=== PATIENT | female | born 1950 | race Caucasian/White ===

== ENCOUNTER 2023-06-03 11:16 | Inpatient (IN) | payer OTHER, MEDICARE ==
[~2023-06-03] VITALS: Ht 157.5 cm; Wt 84.9 kg
[2023-06-03 11:51] LABS: BASOPHILS # (AUTO) 0.1 K/uL (0.0-0.2); BASOPHILS % (AUTO) 0.8 % (0.0-2.0); EOSINOPHILS # (AUTO) 0.1 K/uL (0.0-0.7); EOSINOPHILS % (AUTO) 0.9 % (0.0-6.0); HEMATOCRIT 34 % (33-45); HEMOGLOBIN 11.2 g/dL (11.5-14.8); LYMPHOCYTES # (AUTO) 2.3 K/uL (0.8-4.8); LYMPHOCYTES % (AUTO) 26.6 % (20.0-44.0); MEAN CORPUSCULAR HEMOGLOBIN 30 PG (26.0-33.0); MEAN CORPUSCULAR HGB CONC 33 g/dl (31.0-36.0); MEAN CORPUSCULAR VOLUME 91 fL (82-100); MONOCYTES # (AUTO) 0.5 K/uL (0.1-1.30); MONOCYTES % (AUTO) 5.8 % (2.0-12.0); NEUTROPHILS # (AUTO) 5.6 K/uL (1.8-8.9); NEUTROPHILS % (AUTO) 65.9 % (43.0-81.0); PLATELET COUNT (AUTO) 406 K/uL (150-450); RED BLOOD CELL COUNT(AUTO) 3.73 MIL/uL (4.0-5.2); RED CELL DISTRIBUTION WIDTH 13.8 % (11.5-15.0); WHITE BLOOD COUNT (AUTO) 8.5 K/uL (4.3-11.0)
[2023-06-03 12:02] LABS: CARBON DIOXIDE 23 mmol/L (21-32); CHLORIDE 104 mmol/L (98-107); CREATININE 1.4 mg/dL (0.6-1.3); GLUCOSE 212 mg/dL (74-106); POTASSIUM 4.1 mmol/L (3.5-5.1); SODIUM SERUM 136 mmol/L (136-145); UREA NITROGEN, BLOOD 30 mg/dL (7-18)
[2023-06-03 12:04] LABS: INR 1.48 (0.91-1.10); PARTIAL THROMBOPLASTIN TIME 38.1 SEC (24.3-34.3); PROTHROMBIN TIME 14.9 SECS (9.2-11.1)
[2023-06-03 12:07] LABS: ALANINE AMINOTRANSFERASE 15 U/L (12-78); ALBUMIN 3.2 g/dL (3.4-5.0); ALKALINE PHOSPHATASE 43 U/L (46-116); ASPARTATE AMINOTRANSFERASE 17 U/L (15-37); BILIRUBIN,DIRECT 0.1 mg/dL (0.0-0.2); BILIRUBIN,TOTAL 0.3 mg/dL (0.2-1.0); TOTAL PROTEIN, SERUM 8.2 g/dL (6.4-8.2)
[2023-06-03] MEDS: IV NS 0.9% 1,000 ML BAG IV ONE (12:40)
[2023-06-03] MEDS ORDERED: DRON400T6 PO (13:41)
[2023-06-03] MEDS ORDERED: METF-440 PO (13:41)
[2023-06-03] MEDS ORDERED: DILT-4 PO (13:41)
[2023-06-03] MEDS ORDERED: GABA-536 PO (13:41)
[2023-06-03] MEDS ORDERED: ATOR20TA PO (13:41)
[2023-06-03] MEDS ORDERED: ENAL-78 PO (13:41)
[2023-06-03] MEDS ORDERED: DABI150C PO (13:41)
[2023-06-03] MEDS ORDERED: DONE10TA44 PO (13:41)
[2023-06-03] MEDS ORDERED: MEMA10TA PO (13:41)
[2023-06-03] MEDS ORDERED: CALC500T52 (13:41)
[2023-06-03] MEDS ORDERED: CHOL200059 PO (13:41)
[2023-06-03] MEDS ORDERED: LEVO50TA8 PO (13:41)
[2023-06-03] MEDS ORDERED: QUET25TA PO (13:41)
[2023-06-03 13:48] LABS: INR 1.42 (0.91-1.10); PROTHROMBIN TIME 14.4 SECS (9.2-11.1)
[2023-06-03] MEDS ORDERED: Z GUARD REMEDY 4 OZ OINT TP PRN (15:00)
[2023-06-03] MEDS ORDERED: ONDANSETRON HCL/PF 4 MG/2 ML VIAL IVP PRN (15:00)
[2023-06-03] MEDS ORDERED: MAGNESIUM HYDROXIDE 30 ML UDC PO PRN (15:00)
[2023-06-03] MEDS ORDERED: ACETAMINOPHEN 325 MG TABLET PO PRN (15:00)
[2023-06-03] MEDS ORDERED: DABIGATRAN ETEXILATE MESYLATE 150 MG CAPSULE PO SCH (17:00)
[2023-06-03 18:25] VITALS: BP_SYST 120; BP_SYST 125; BP_SYST 128; BP_DIAS 85; BP_DIAS 86; BP_DIAS 87; TEMP 98.8; O2SAT 98
[2023-06-03] MEDS: IV NS 0.9% 1,000 ML IV PRN (18:30)
[2023-06-03] MEDS: DRONEDARONE HYDROCHLORIDE 400 MG TABLET PO SCH (19:01)
[2023-06-03 20:00] VITALS: BP 108/62; TEMP 97.9; O2SAT 95
[2023-06-03] MEDS: QUETIAPINE FUMARATE 25 MG TABLET PO SCH (21:37)
[2023-06-04] VITALS: BP 137/64; TEMP 97.8; O2SAT 96
[2023-06-04 04:00] VITALS: BP 118/75; TEMP 97.7; O2SAT 94
[2023-06-04 07:00] VITALS: BP 100/82; TEMP 98.4; O2SAT 94
[2023-06-04 07:32] LABS: BASOPHILS # (AUTO) 0.1 K/uL (0.0-0.2); BASOPHILS % (AUTO) 0.4 % (0.0-2.0); EOSINOPHILS % (AUTO) 0.3 % (0.0-6.0); HEMATOCRIT 34 % (33-45); HEMOGLOBIN 11.3 g/dL (11.5-14.8); LYMPHOCYTES # (AUTO) 2.9 K/uL (0.8-4.8); LYMPHOCYTES % (AUTO) 21.9 % (20.0-44.0); MEAN CORPUSCULAR HEMOGLOBIN 30 PG (26.0-33.0); MEAN CORPUSCULAR HGB CONC 33 g/dl (31.0-36.0); MEAN CORPUSCULAR VOLUME 91 fL (82-100); MONOCYTES # (AUTO) 0.7 K/uL (0.1-1.30); MONOCYTES % (AUTO) 5.6 % (2.0-12.0); NEUTROPHILS # (AUTO) 9.5 K/uL (1.8-8.9); NEUTROPHILS % (AUTO) 71.8 % (43.0-81.0); PLATELET COUNT (AUTO) 381 K/uL (150-450); RED BLOOD CELL COUNT(AUTO) 3.77 MIL/uL (4.0-5.2); WHITE BLOOD COUNT (AUTO) 13.3 K/uL (4.3-11.0)
[2023-06-04 08:06] LABS: CALCIUM, SERUM 8.4 mg/dL (8.5-10.1); CREATININE 0.9 mg/dL (0.6-1.3); MAGNESIUM 1.4 mg/dL (1.8-2.4); PHOSPHORUS 3.2 mg/dL (2.5-4.9); POTASSIUM 4.1 mmol/L (3.5-5.1)
[2023-06-04 08:17] LABS: THYROID STIMULATING HORMONE 1.114 uIU/mL (0.358-3.74)
[2023-06-04] MEDS: LEVOTHYROXINE SODIUM 50 MCG TABLET PO SCH (08:41)
[2023-06-04] MEDS: ASPIRIN EC 81 MG TABLET.DR PO SCH (08:41)
[2023-06-04] MEDS: GABAPENTIN 400 MG CAPSULE PO SCH (08:41)
[2023-06-04] MEDS: PANTOPRAZOLE 40 MG TABLET.DR PO SCH (08:41)
[2023-06-04] MEDS: DONEPEZIL 5 MG TABLET PO SCH (08:42)
[2023-06-04] MEDS: DILTIAZEM HCL CD 240 MG PO SCH (08:50)
[2023-06-04] MEDS: MEMANTINE HCL 5 MG TABLET PO SCH (08:53)
[2023-06-04] MEDS: ATORVASTATIN 10 MG TABLET PO SCH (08:53)
[2023-06-04] MEDS: CHOLECALCIFEROL 1,000 UNIT TABLET (VIT D3) PO SCH (08:53)
[2023-06-04] MEDS: DABIGATRAN ETEXILATE MESYLATE 75 MG CAPSULE PO SCH (09:34)
[2023-06-04] MEDS: MAGNESIUM OXIDE 400 MG TABLET PO ONE (11:04)
[2023-06-04 11:30] VITALS: BP 115/74; TEMP 98.2; O2SAT 99
[2023-06-04 12:56] LABS: APPEARANCE,URINE SLIGHTLY CLOUDY (CLEAR); BILIRUBIN,URINE 1+ (NEGATIVE); BLOOD, URINE NEGATIVE Ery/uL (NEGATIVE); COLOR,URINE DARK YELLOW (YELLOW); KETONES,URINE TRACE mg/dL (NEGATIVE); LEUKOCYTE ESTERASE ,URINE TRACE (NEGATIVE); NITRITE, URINE POSITIVE (NEGATIVE); PROTEIN,URINE TRACE mg/dl (NEGATIVE); UGLUCOSE NEGATIVE (NEGATIVE)
[2023-06-04 13:36] LABS: ADD URINE CULTURE YES; BACTERIA,URINE 3+ /HPF (None Seen); MUCUS,URINE Few /LPF (None Seen); RBC,URINE NONE SEEN /HPF (0-2); TRIPLE PHOSPHATE CRYSTAL,UR Many /HPF (None Seen)
[2023-06-04 13:54] LABS: EOSINOPHIL,URINE None Seen
[2023-06-04 14:09] LABS: CREATININE, URINE 86.8 MG/DL (30.0-125.0); URINE TOTAL PROTEIN 33.5 mg/dL (0-11.9)
[2023-06-04] MEDS ORDERED: NITR100C6 PO (14:18)
[2023-06-04] MEDS ORDERED: CEFTRIAXONE 1 G VIAL IM SCH (14:30)
[2023-06-04] MEDS: CEFTRIAXONE 1 G in IV D5W 50 ML IV SCH (15:04)
== END 2023-06-04 17:51 | disposition home or self-care (01) | DRG 48 ==
LOC: ER 11:18 → TELE 15:58
PROVIDERS: ADMIT Nurse Practitioner Family; ATTEND Nurse Practitioner Family
DX: G90.8 Other disorders of autonomic nervous system (principal); N17.9 Acute kidney failure, unspecified; E44.1 Mild protein-calorie malnutrition; E88.09 Other disorders of plasma-protein metabolism, not elsewhere classified; E86.0 Dehydration; D64.9 Anemia, unspecified; E11.9 Type 2 diabetes mellitus without complications; I48.91 Unspecified atrial fibrillation; E83.42 Hypomagnesemia; G30.9 Alzheimer's disease, unspecified; F02.83 Dementia in other diseases classified elsewhere, unspecified severity, with mood disturbance; I10 Essential (primary) hypertension; F32.A Depression, unspecified; Z86.73 Personal history of transient ischemic attack (TIA), and cerebral infarction without residual deficits; Z87.891 Personal history of nicotine dependence; M89.8X9 Other specified disorders of bone, unspecified site; Z95.0 Presence of cardiac pacemaker; R55 Syncope and collapse; Z79.84 Long term (current) use of oral hypoglycemic drugs; Z68.34 Body mass index [BMI] 34.0-34.9, adult
CPT/HCPCS: 36415; 70450-TC; 71045-TC; 80048-TC; 80061-TC; 80076-TC; 81001; 82570-TC; 82962-TC; 83735-TC; 84100-TC; 84300-TC; 84439-TC; 84443-TC; 84484-TC; 85025-TC; 85730-TC; 87086-TC; 93307-TC; 93971-TC; 97112-TC; 97116-TC; 97530-TC; A4223; G0378; J0696; J7030; J7060

== ENCOUNTER 2024-02-01 19:15 | Emergency (ER) | payer MEDICARE, OTHER ==
[~2024-02-01] VITALS: Ht 160 cm; Wt 82.6 kg
[~2024-02-01 19:15] MED LIST: AMOX-430 PO; ASPI-1169 PO; ATOR20TA PO; CALC500T52; CHOL200059 PO; DABI150C PO; DILT-4 PO; DONE10TA44 PO; DRON400T6 PO; GABA-536 PO; LEVO50TA8 PO; MAGN400T26 PO; MEMA10TA PO; METF-440 PO; QUET25TA PO
[2024-02-01] MEDS: IV NS 0.9% 1,000 ML BAG IV ONE (19:55)
[2024-02-01 20:12] LABS: BASOPHILS # (AUTO) 0.1 K/uL (0.0-0.2); BASOPHILS % (AUTO) 0.8 % (0.0-2.0); EOSINOPHILS # (AUTO) 0.1 K/uL (0.0-0.7); EOSINOPHILS % (AUTO) 0.9 % (0.0-6.0); HEMATOCRIT 32 % (33-45); HEMOGLOBIN 10.7 g/dL (11.5-14.8); LYMPHOCYTES # (AUTO) 1.9 K/uL (0.8-4.8); LYMPHOCYTES % (AUTO) 21.1 % (20.0-44.0); MEAN CORPUSCULAR HEMOGLOBIN 30 PG (26.0-33.0); MEAN CORPUSCULAR HGB CONC 34 g/dl (31.0-36.0); MEAN CORPUSCULAR VOLUME 90 fL (82-100); MONOCYTES # (AUTO) 0.5 K/uL (0.1-1.30); NEUTROPHILS # (AUTO) 6.4 K/uL (1.8-8.9); NEUTROPHILS % (AUTO) 71.2 % (43.0-81.0); PLATELET COUNT (AUTO) 361 K/uL (150-450); RED BLOOD CELL COUNT(AUTO) 3.55 MIL/uL (4.0-5.2); RED CELL DISTRIBUTION WIDTH 14.7 % (11.5-15.0)
[2024-02-01 20:33] LABS: INR 1.97 (0.91-1.10); PARTIAL THROMBOPLASTIN TIME 55.5 SEC (24.3-34.3)
[2024-02-01 20:33] LABS: APPEARANCE,URINE CLOUDY (CLEAR); BILIRUBIN,URINE NEGATIVE (NEGATIVE); BLOOD, URINE TRACE-INTA Ery/uL (NEGATIVE); COLOR,URINE YELLOW (YELLOW); KETONES,URINE NEGATIVE (NEGATIVE); LEUKOCYTE ESTERASE ,URINE 3+ (NEGATIVE); NITRITE, URINE POSITIVE (NEGATIVE); PROTEIN,URINE TRACE mg/dl (NEGATIVE); UGLUCOSE NEGATIVE (NEGATIVE); UROBILINOGEN,URINE 0.2 EU/dL (0.2)
[2024-02-01 20:37] LABS: CALCIUM, SERUM 8.9 mg/dL (8.5-10.1); CARBON DIOXIDE 25 mmol/L (21-32); CHLORIDE 106 mmol/L (98-107); CREATININE 1.7 mg/dL (0.6-1.3); GLUCOSE 194 mg/dL (74-106); POTASSIUM 4.5 mmol/L (3.5-5.1); SODIUM SERUM 140 mmol/L (136-145); UREA NITROGEN, BLOOD 26 mg/dL (7-18)
[2024-02-01 20:44] LABS: ALANINE AMINOTRANSFERASE 18 U/L (12-78); ALBUMIN 3.1 g/dL (3.4-5.0); ALKALINE PHOSPHATASE 64 U/L (46-116); ASPARTATE AMINOTRANSFERASE 14 U/L (15-37); BILIRUBIN,DIRECT 0.1 mg/dL (0.0-0.2); BILIRUBIN,TOTAL 0.2 mg/dL (0.2-1.0); TOTAL PROTEIN, SERUM 8.2 g/dL (6.4-8.2)
[2024-02-01 21:15] LABS: LACTIC ACID 1.4 mmol/L (0.4-2.0)
[2024-02-01 21:19] LABS: ADD URINE CULTURE YES; BACTERIA,URINE Many /HPF (None Seen); SQUAMOUS EPITHELIAL CELL,UR None Seen /HPF (None Seen); WBC,URINE TOO NUMEROUS TO COUN /HPF (0-3)
[2024-02-01] MEDS ORDERED: CEFTRIAXONE 1 G in IV D5W 50 ML IV ONE (22:00)
[2024-02-01] MEDS: AMOX/CLAVULANATE 875 MG TABLET PO ONE (22:00)
[2024-02-01] MEDS ORDERED: AMOX/CLAVULANATE 875 MG TABLET ONE (22:06)
[2024-02-01] MEDS ORDERED: AMOX-430 PO (22:26)
[2024-02-01 23:07] VITALS: BP 129/87; TEMP 98.2; O2SAT 96
[2024-02-02] MEDS ORDERED: AMOX-430 PO (11:28)
== END 2024-02-01 23:07 | disposition left against medical advice (07) ==
LOC: ER 19:45
DX: N39.0 Urinary tract infection, site not specified (principal); R55 Syncope and collapse; I95.9 Hypotension, unspecified; R79.89 Other specified abnormal findings of blood chemistry; I48.91 Unspecified atrial fibrillation; I10 Essential (primary) hypertension; G30.9 Alzheimer's disease, unspecified; F02.80 Dementia in other diseases classified elsewhere, unspecified severity, without behavioral disturbance, psychotic disturbance, mood disturbance, and anxiety; E78.5 Hyperlipidemia, unspecified; E11.9 Type 2 diabetes mellitus without complications; Z79.01 Long term (current) use of anticoagulants; Z79.02 Long term (current) use of antithrombotics/antiplatelets; Z79.82 Long term (current) use of aspirin; Z79.84 Long term (current) use of oral hypoglycemic drugs; Z79.899 Other long term (current) drug therapy; Z87.440 Personal history of urinary (tract) infections; Z95.0 Presence of cardiac pacemaker
CPT/HCPCS: 99285; 96360; 71045; 93005; 84145; 85025; 80048; 87077 ×2; 87040 ×2; 87086; 83605; 80076; 87186; 81001; 36415; 84484; 85730; J0696; J7060; J7030